=== PATIENT | male | born 1950 | race Caucasian/White ===

== ENCOUNTER → 2016-07-25 | Outpatient (CLI) | payer MEDICARE ==
[2016-07-25 08:03] LABS: BUN 21 mg/dl (7-24); EST GLOM FILT AFRICAN AMERICAN > 60 ml/min
== END | disposition home or self-care (01) ==
LOC: LAB 07:31 → MRI 07:31
PROVIDERS: Specialist
DX: H90.41 Sensorineural hearing loss, unilateral, right ear, with unrestricted hearing on the contralateral side (principal); H92.01 Otalgia, right ear; H93.13 Tinnitus, bilateral

== ENCOUNTER 2017-12-16 15:08 | Emergency (ER) | payer MEDICARE ==
[~2017-12-16] VITALS: Ht 172.7 cm; Wt 99.8 kg
[2017-12-16] MEDS ORDERED: CYMBALTA60 MG PO (15:31)
[2017-12-16] MEDS ORDERED: GLYCOLAX119 GM PO (15:32)
[2017-12-16] MEDS ORDERED: NEURONTIN300 MG PO (15:34)
[2017-12-16] MEDS ORDERED: APLISOL5 TUB UNIT IC (15:35)
[2017-12-16] MEDS ORDERED: HYDROCODONE-AC1 EAC2 PO (15:38)
[2017-12-16] MEDS ORDERED: LORCET PLUS 7.1 EACH PO (15:39)
[2017-12-16] MEDS ORDERED: CYMBALTA30 MG PO (15:40)
[2017-12-16] MEDS ORDERED: DOCUSATE SODIU100 M2 PO (15:40)
[2017-12-16] MEDS ORDERED: ERGOCALCIFEROL1 GM MC (15:41)
[2017-12-16] MEDS ORDERED: OMEPRAZOLE20 M2 PO (15:41)
[2017-12-16] MEDS ORDERED: GLUCOPHAGE500 M1 PO (15:42)
[2017-12-16] MEDS ORDERED: GLUCOTROL5 MG PO (15:43)
[2017-12-16] MEDS ORDERED: ELIQUIS5 M1 PO (15:44)
[2017-12-16] MEDS ORDERED: CLOPIDOGREL75 MG PO (15:44)
[2017-12-16] MEDS ORDERED: LOPRESSOR25 MG PO (15:44)
[2017-12-16] MEDS ORDERED: LIPITOR10 MG PO (15:45)
[2017-12-16] MEDS ORDERED: ASPIR 8181 MG PO (15:45)
[2017-12-16 16:24] LABS: HEMATOCRIT 23.7 % (42.0-52.0); HEMOGLOBIN 7.3 g/dl (14.0-18.0); MEAN CELL VOLUME 83.5 fl (80.0-94.0); MEAN CORPUSCULAR HGB 25.7 pg (27.0-31.0); MEAN CORPUSCULAR HGB CONC 30.8 g/dl (33.0-37.0); MEAN PLATELET VOLUME 9.3 fl (9.6-12.3); PLATELET COUNT AUTOMATED 533 10*3/uL (130-400); RED BLOOD COUNT 2.84 10*6/uL (4.50-5.90); RED CELL DISTRI WIDTH 16.6 % (0-14.5); WHITE BLOOD COUNT 24.6 10*3/uL (4.8-10.8)
[2017-12-16 16:32] LABS: ACT PARTIAL THROMBO TIME 29.5 SECONDS (20.8-31.5); INTERNATIONAL NORM RATIO 1.3 (2.0-3.5)
[2017-12-16 16:44] LABS: ALBUMIN 2.6 gm/dl (3.1-4.5); ALKALINE PHOSPHATASE 265 U/L (45-117); BUN 16 mg/dl (7-24); CHLORIDE 94 mmol/L (98-107); CREATININE 0.91 mg/dL (0.70-1.30); PLATELET SUFFICIENCY HIGH (NORMAL); POLYCHROMASIA SLIGHT; POTASSIUM 4.6 mmol/L (3.5-5.1); SGOT/AST 32 IU/L (3-35); SGPT/ALT 35 U/L (12-78); SODIUM 127 mmol/L (136-145); TARGET CELLS FEW; TOTAL CELLS COUNTED 100 #CELLS; TOTAL PROTEIN 7.5 gm/dL (6.4-8.2)
[2017-12-16 16:45] LABS: MICROCYTOSIS SLIGHT
== END 2017-12-16 21:48 | disposition short-term general hospital (02) ==
LOC: ED 15:08
PROVIDERS: Physician Assistant
DX: T81.4XXA Infection following a procedure, initial encounter (principal); Z79.899 Other long term (current) drug therapy; Z79.82 Long term (current) use of aspirin

== ENCOUNTER 2017-12-30 10:21 | Emergency (ER) | payer MEDICARE ==
[~2017-12-30 10:21] MED LIST: APLISOL5 TUB UNIT IC; ASPIR 8181 MG PO; CLOPIDOGREL75 MG PO; CYMBALTA30 MG PO; CYMBALTA60 MG PO; DOCUSATE SODIU100 M2 PO; ELIQUIS5 M1 PO; ERGOCALCIFEROL1 GM MC; GLUCOPHAGE500 M1 PO; GLUCOTROL5 MG PO; GLYCOLAX119 GM PO; HYDROCODONE-AC1 EAC2 PO; LIPITOR10 MG PO; LOPRESSOR25 MG PO; LORCET PLUS 7.1 EACH PO; NEURONTIN300 MG PO; OMEPRAZOLE20 M2 PO
[2017-12-30] MEDS ORDERED: ERGOCALCIFEROL1 GM PO (11:04)
[2017-12-30] MEDS ORDERED: CYMBALTA60 MG PO (11:05)
[2017-12-30] MEDS ORDERED: PERCOCET 5-3251 EACH PO (11:06)
[2017-12-30] MEDS ORDERED: CYMBALTA30 MG PO (11:07)
[2017-12-30 11:12] LABS: HEMATOCRIT 20.9 % (42.0-52.0); MEAN CELL VOLUME 87.1 fl (80.0-94.0); MEAN CORPUSCULAR HGB 29.2 pg (27.0-31.0); MEAN CORPUSCULAR HGB CONC 33.5 g/dl (33.0-37.0); MEAN PLATELET VOLUME 9.6 fl (9.6-12.3); PLATELET COUNT AUTOMATED 386 10*3/uL (130-400); RED CELL DISTRI WIDTH 16.7 % (0-14.5); WHITE BLOOD COUNT 17.2 10*3/uL (4.8-10.8)
[2017-12-30] MEDS ORDERED: 'CLONIDINE0.1 MG PO (11:12)
[2017-12-30] MEDS ORDERED: FLORASTOR250 MG PO (11:13)
[2017-12-30] MEDS ORDERED: LEVAQUIN750 M1 PO (11:13)
[2017-12-30] MEDS ORDERED: ACETAMINOPHEN325 M2 PO (11:15)
[2017-12-30] MEDS ORDERED: OMEPRAZOLE20 M2 PO (11:15)
[2017-12-30 11:20] LABS: ACT PARTIAL THROMBO TIME 25.8 SECONDS (20.8-31.5); INTERNATIONAL NORM RATIO 1.4 (2.0-3.5)
[2017-12-30 11:27] LABS: ALBUMIN 1.7 gm/dl (3.1-4.5); ALKALINE PHOSPHATASE 113 U/L (45-117); BUN 5 mg/dl (7-24); CHLORIDE 102 mmol/L (98-107); CREATININE 0.64 mg/dL (0.70-1.30); POTASSIUM 3.5 mmol/L (3.5-5.1); SGOT/AST 11 IU/L (3-35); SGPT/ALT 18 U/L (12-78); SODIUM 139 mmol/L (136-145); TOTAL PROTEIN 5.1 gm/dL (6.4-8.2)
[2017-12-30 11:33] LABS: BASOPHILS 3 % (0-1); PLATELET SUFFICIENCY NORMAL (NORMAL); POLYCHROMASIA SLIGHT; TOTAL CELLS COUNTED 100 #CELLS
== END 2017-12-30 13:20 | disposition short-term general hospital (02) ==
LOC: ED 10:21
PROVIDERS: Emergency Medicine
DX: M96.830 Postprocedural hemorrhage of a musculoskeletal structure following a musculoskeletal system procedure (principal); Z79.899 Other long term (current) drug therapy; Z79.82 Long term (current) use of aspirin

== ENCOUNTER → 2018-04-22 | Outpatient (CLI) | payer MEDICARE ==
[~2018-04-22] MED LIST changes: +'CLONIDINE0.1 MG PO; +ACETAMINOPHEN325 M2 PO; +ERGOCALCIFEROL1 GM PO; +FLORASTOR250 MG PO; +LEVAQUIN750 M1 PO; +PERCOCET 5-3251 EACH PO
== END | disposition home or self-care (01) ==
LOC: CT 13:00
DX: I70.262 Atherosclerosis of native arteries of extremities with gangrene, left leg (principal); N40.1 Benign prostatic hyperplasia with lower urinary tract symptoms; I48.2 Chronic atrial fibrillation; K59.00 Constipation, unspecified; I10 Essential (primary) hypertension; E11.51 Type 2 diabetes mellitus with diabetic peripheral angiopathy without gangrene; E78.5 Hyperlipidemia, unspecified; G62.9 Polyneuropathy, unspecified; I25.10 Atherosclerotic heart disease of native coronary artery without angina pectoris; K21.9 Gastro-esophageal reflux disease without esophagitis; N32.89 Other specified disorders of bladder; K57.30 Diverticulosis of large intestine without perforation or abscess without bleeding

== ENCOUNTER → 2018-09-19 | Outpatient (CLI) | payer MEDICARE | END | disposition home or self-care (01) | LOC: ORTHO 00:09 | DX: E08.59 Diabetes mellitus due to underlying condition with other circulatory complications (principal) ==

== ENCOUNTER → 2020-03-19 | Outpatient (CLI) | payer MEDICARE | END | disposition home or self-care (01) | LOC: RESCLI 00:24 | PROVIDERS: ATTEND Student in an Organized Health Care Education/Training Program | DX: E11.65 Type 2 diabetes mellitus with hyperglycemia (principal); E03.9 Hypothyroidism, unspecified; E55.9 Vitamin D deficiency, unspecified; I73.9 Peripheral vascular disease, unspecified; E78.5 Hyperlipidemia, unspecified; I25.810 Atherosclerosis of coronary artery bypass graft(s) without angina pectoris ==

== ENCOUNTER → 2020-08-16 | Outpatient (CLI) | payer MEDICARE | END | disposition home or self-care (01) | LOC: RESCLI 01:27 | PROVIDERS: ATTEND Internal Medicine Nephrology | DX: E11.65 Type 2 diabetes mellitus with hyperglycemia (principal); I73.9 Peripheral vascular disease, unspecified; E03.9 Hypothyroidism, unspecified; E53.8 Deficiency of other specified B group vitamins; G62.9 Polyneuropathy, unspecified; I25.10 Atherosclerotic heart disease of native coronary artery without angina pectoris; E78.2 Mixed hyperlipidemia; E55.9 Vitamin D deficiency, unspecified; Z79.899 Other long term (current) drug therapy; Z79.82 Long term (current) use of aspirin; Z88.8 Allergy status to other drugs, medicaments and biological substances; Z98.890 Other specified postprocedural states ==

== ENCOUNTER 2020-10-23 09:39 | Emergency (ER) | payer MEDICARE ==
[~2020-10-23] VITALS: Wt 77.1 kg
[2020-10-23 10:47] LABS: BASO # 0.1 10*3/uL (0.0-0.1); BASO % 0.7 % (0.0-1.0); EOS # 0.5 10*3/uL (0.0-0.4); EOS % 4.3 % (1.0-4.0); LYMPH # 0.9 10*3/uL (1.3-4.4); LYMPH % 7.8 % (27.0-41.0); MEAN CELL VOLUME 85.5 fl (80.0-94.0); MEAN CORPUSCULAR HGB 24.1 pg (27.0-31.0); MEAN CORPUSCULAR HGB CONC 28.2 g/dl (33.0-37.0); MEAN PLATELET VOLUME 9.8 fl (9.6-12.3); MONO # 1.5 10*3/uL (0.1-1.0); MONO % 12.4 % (3.0-9.0); NEUT % 74.3 % (47.0-73.0); PLATELET COUNT AUTOMATED 288 10*3/uL (130-400); RED BLOOD COUNT 3.86 10*6/uL (4.50-5.90); RED CELL DISTRI WIDTH 24.9 % (0-14.5)
[2020-10-23 11:10] LABS: ALBUMIN 2.8 gm/dl (3.1-4.5); ALKALINE PHOSPHATASE 163 U/L (45-117); BUN 49 mg/dl (7-24); CHLORIDE 105 mmol/L (98-107); CREATININE 1.41 mg/dL (0.70-1.30); LIPASE 27 U/L (73-393); POTASSIUM 4.4 mmol/L (3.5-5.1); SGOT/AST 23 IU/L (3-35); SGPT/ALT 25 U/L (12-78); SODIUM 135 mmol/L (136-145); TOTAL PROTEIN 7.5 gm/dL (6.4-8.2)
[2020-10-23 11:13] LABS: TROPONIN I < 0.015 ng/ml (<0.045)
== END 2020-10-23 13:10 ==
LOC: ED 09:39
PROVIDERS: Emergency Medicine
DX: K56.7 Ileus, unspecified (principal); E86.0 Dehydration; J90 Pleural effusion, not elsewhere classified; R11.2 Nausea with vomiting, unspecified; R62.7 Adult failure to thrive; E11.51 Type 2 diabetes mellitus with diabetic peripheral angiopathy without gangrene; Z79.899 Other long term (current) drug therapy; Z79.82 Long term (current) use of aspirin; Z89.611 Acquired absence of right leg above knee; Z89.432 Acquired absence of left foot; Z87.891 Personal history of nicotine dependence

== ENCOUNTER 2020-11-12 11:06 | Emergency (ER) | payer MEDICARE ==
[2020-11-12 12:30] LABS: ABG BASE EXCESS -3.4 mmol/L (-2.0-2.0); ARTERIAL BLOOD GAS PH 7.366 (7.35-7.45); ARTERIAL BLOOD GAS PO2 66.5 (80-90)
[2020-11-12] MEDS ORDERED: LASIX40 MG PO (13:01)
== END 2020-11-12 13:53 ==
LOC: ED 11:06
PROVIDERS: Student in an Organized Health Care Education/Training Program
DX: R09.89 Other specified symptoms and signs involving the circulatory and respiratory systems (principal)